=== PATIENT | female | born 1980 | race African-American/Black ===

== ENCOUNTER 2018-06-09 19:13 | Emergency (ER) | payer OTHER ==
[~2018-06-09] VITALS: Ht 172.7 cm; Wt 93.0 kg
[2018-06-09 19:18] VITALS: BP 132/73
[2018-06-09] MEDS ORDERED: IBUPROFEN 600 MG TABLET. PO ONE (20:00)
[2018-06-09] MEDS ORDERED: METH-38 PO (21:03)
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
== END 2018-06-09 21:09 | disposition home or self-care (01) ==
LOC: ER 19:13
DX: S29.012A Strain of muscle and tendon of back wall of thorax, initial encounter (principal); S39.012A Strain of muscle, fascia and tendon of lower back, initial encounter; Z98.51 Tubal ligation status; V43.52XA Car driver injured in collision with other type car in traffic accident, initial encounter; Y93.89 Activity, other specified; Y92.410 Unspecified street and highway as the place of occurrence of the external cause; Y99.8 Other external cause status
CPT/HCPCS: 72072; 72100; 99283

== ENCOUNTER 2019-09-15 23:02 | Emergency (ER) | payer OTHER ==
[~2019-09-15] VITALS: Ht 170.2 cm; Wt 118.0 kg
[~2019-09-15 23:02] MED LIST: METH-38 PO
[2019-09-15] MEDS ORDERED: IV NORMAL SALINE 1000ML BAG 1,000 ML IV SCH (23:30)
--- NOTE | 2019-09-15 23:43 | PHYS DOC ---
Past Medical History Past Medical History: No Pertinent History Past Surgical History: Tubal ligation Smoking Status: Never Smoker Alcohol Use: None Drug Use: None General Adult EDM: Chief Complaint: CHEST PAIN HPI: HPI: Patient is a 39 year old female who presents with complaint of chest discomfort that started at about 9 PM. Patient states that pain is still present and she rates it at a 7 out of 10. She states that pain is sharp and stabbing in nature and is worsened with deep breathing. She does indicate that she has had a few other similar episodes in the past and this time she decided to come in because her doctor told her she should if she had it again. She states that pain does not radiate. She denies any back pain or injury. She denies any nausea, vomiting or diaphoresis. She does indicate that she has some soreness in her chest when she pushes on it. [] Review of Systems: Review of Systems: Constitutional: Denies fever or chills. [] Respiratory: Denies cough or shortness of breath. [] Cardiovascular: Complains of chest pain. [] GI: Denies abdominal pain, nausea, vomiting, bloody stools or diarrhea. [] Musculoskeletal: Denies back pain or joint pain. [] Integument: Denies rash. [] Neurologic: Denies headache, focal weakness or sensory changes. [] A full 10 point review of systems has been reviewed and is otherwise negative. Heart Score: Risk Factors: Risk Factors: DM, Current or recent (<one month) smoker, HTN, HLP, family history of CAD, obesity. Risk Scores: Score 0 - 3: 2.5% MACE over next 6 weeks - Discharge Home Score 4 - 6: 20.3% MACE over next 6 weeks - Admit for Clinical Observation Score 7 - 10: 72.7% MACE over next 6 weeks - Early Invasive Strategies Current Medications: Current Medications Medications (Trade) Dose Ordered Sig/Alice Start Time Stop Time Status Last Admin Dose Admin Sodium Chloride 1,000 ml @ 1,000 mls/hr Q1H 09/15/19 23:18 09/16/19 00:17 UNV Allergies: Allergies: Allergies Coded Allergies Type Severity Reaction Last Updated Verified No Known Drug Allergies 10/06/13 No Physical Exam: PE: Constitutional: Well developed, well nourished, no acute distress, non-toxic appearance. [] HENT: Normocephalic, atraumatic, bilateral external ears normal, oropharynx moist, no oral exudates, nose normal. [] Eyes: PERRLA, EOMI, conjunctiva normal, no discharge. [] Neck: Normal range of motion, no tenderness, supple. [] Cardiovascular: Regular rate and rhythm. There is reproducible tenderness to palpation on the bilateral sternal margins, reproducing patient's pain. [] Lungs & Thorax: Bilateral breath sounds clear to auscultation [] Abdomen: Bowel sounds normal, soft, no tenderness. [] Skin: Warm, dry, no erythema, no rash. [] Extremities: No tenderness, no cyanosis, no clubbing, ROM intact, no edema. [] Neurologic: Alert and oriented X 3, no focal deficits noted. [] EKG: EKG: EKG demonstrates normal sinus rhythm with rate of 79. [] Radiology/Procedures: Radiology/Procedures: [] Impression: PROCEDURE: PORTABLE CHEST 1V PORTABLE CHEST 1V Clinical History: Chest pain Technique: AP view of the chest was obtained at 09/15/2019 11:18 PM. Comparison: None. Findings: The cardiomediastinal silhouette is normal. The pulmonary vasculature is normal. The lungs and pleural margins are clear. Impression: No evidence of an acute cardiopulmonary process. Electronically signed by: Reinaldo Mari III, MD (09/16/2019 12:12 AM) [id number] Course & Med Decision Making: Course & Med Decision Making Pertinent Labs and Imaging studies reviewed. (See chart for details) [] Dragon Disclaimer: Dragon Disclaimer: This electronic medical record was generated, in whole or in part, using a voice recognition dictation system. Departure Departure Impression: Primary Impression: Costochondritis Disposition: 01 HOME, SELF-CARE Condition: STABLE Referrals: LILLY RENEE APRN (PCP) Patient Instructions: Costochondritis Scripts Tramadol Hcl (TRAMADOL HCL) 50 Mg Tablet 50 MG PO Q6HRS PRN for PAIN, #12 TAB Prov: JERONIMO PAULINO Jr. DO 09/16/19 Diclofenac Sodium (DICLOFENAC SODIUM) 50 Mg Tablet.dr 1 TAB PO BID PRN for PAIN, #20 TAB Prov: JERONIMO PAULINO Jr. DO 09/16/19 JERONIMO PAULINO Jr. DO September 15, 2019 23:43
[2019-09-15 23:44] LABS: BASO # 0.1 x10^3/uL (0.0-0.2); BASO % 1 % (0-3); EOS # 0.1 x10^3/uL (0.0-0.7); EOS % 1 % (0-3); HEMATOCRIT 31.8 % (36.0-47.0); HEMOGLOBIN 9.9 g/dL (12.0-15.5); LYMPH # 2.8 x10^3/uL (1.0-4.8); LYMPH % 38 % (24-48); MEAN CORPUSCULAR HEMOGLOBIN 23 pg (25-35); MEAN CORPUSCULAR HGB CONC 31 g/dL (31-37); MEAN CORPUSCULAR VOLUME 72 fL (79-100); MONO # 0.4 x10^3/uL (0.0-1.1); MONO % 5 % (0-9); NEUT # 4.2 x10^3/uL (1.8-7.7); NEUT % 56 % (31-73); PLATELET COUNT 227 x10^3/uL (140-400); RED CELL DISTRIBUTION WIDTH 17.6 % (11.5-14.5); WHITE BLOOD COUNT 7.5 x10^3/uL (4.0-11.0)
[2019-09-15] MEDS ORDERED: KETOROLAC 30 MG/ML VIAL. IVP ONE (23:45)
[2019-09-15 23:51] LABS: CALCIUM 8.5 mg/dL (8.5-10.1); CREATININE 0.9 mg/dL (0.6-1.0); GFR 84.8; POTASSIUM 3.3 mmol/L (3.5-5.1)
[2019-09-15 23:55] LABS: PREG TEST PT QUAL NEGATIVE (NEG)
[2019-09-15 23:57] LABS: ALBUMIN 3.2 g/dL (3.4-5.0); ALBUMIN/GLOBULIN RATIO 0.7 (1.0-1.7); MAGNESIUM 1.7 mg/dL (1.8-2.4); TOTAL BILIRUBIN 0.2 mg/dL (0.2-1.0); TOTAL PROTEIN 7.6 g/dL (6.4-8.2)
[2019-09-16] MEDS ORDERED: KETOROLAC 60 MG/2 ML VIAL. IM ONE
--- NOTE | 2019-09-16 00:15 | RAD ---
PORTABLE CHEST 1V Clinical History: Chest pain Technique: AP view of the chest was obtained at 09/15/2019 11:18 PM. Comparison: None. Findings: The cardiomediastinal silhouette is normal. The pulmonary vasculature is normal. The lungs and pleural margins are clear. Impression: No evidence of an acute cardiopulmonary process. Electronically signed by: Reinaldo Mari III, MD (09/16/2019 12:12 AM) [id number]
[2019-09-16 00:44] LABS: PLT ESTIMATE ADEQUATE (ADEQUATE)
[2019-09-16 00:45] LABS: ANISOCYTOSIS SLIGHT; HYPOCHROMIA SLIGHT; MICROCYTOSIS SLIGHT
[2019-09-16 01:01] VITALS: BP 144/96
[2019-09-16] MEDS ORDERED: DICL50TA4 PO (01:12)
[2019-09-16] MEDS ORDERED: TRAM50TA PO (01:12)
--- NOTE | 2019-09-16 06:36 | EKG ---
[facility] [address] [place] [address] Test Date: 2019-09-15 Test Time: 23:12:31 Pat Name: JULIANNE HUMMEL Department: Room: Gender: F [employer]ator: : 1980 Requested By: JERONIMO PAULINO Order Number: [id number] Reading MD: Karthik Siegel Measurements Intervals [place] Rate: 79 P: 51 IN: 156 QRS: 9 QRSD: 78 T: 17 QT: 364 QTc: 418 Interpretive Statements SINUS RHYTHM NORMAL ECG Electronically Signed On 09-17-2019 8:33:45 CDT by Karthik Siegel
== END 2019-09-16 01:20 | disposition home or self-care (01) ==
LOC: ER 23:02
DX: M94.0 Chondrocostal junction syndrome [Tietze] (principal); R07.89 Other chest pain; Z98.51 Tubal ligation status
CPT/HCPCS: 36415; 71045; 80053; 83735; 84484; 84703; 85025; 93005; 96372; 99285; J1885